=== PATIENT | female | born 1970 | race Caucasian/White ===

== ENCOUNTER 2023-02-19 13:51 | Outpatient (AMB) | payer OTHER, SELFPAY ==
--- NOTE | 2023-02-19 13:59 | AM.OFFWIN_ITS ---
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 Patient Tobacco Use Status: Never used Tobacco Allergies No Known Allergies Allergy (Verified 02/19/23 14:00) Do you need a note to return to daycare/school/sports/work: No HPI HPI Comments History of Present Illness Details 1413 52-year-old female presents with a produ ctive cough of yellow / green sputum for the past 3 weeks, not improving. Patient reports week and half ago her daughter was sick with COVID, she took a COVID test at that time and she was negative. S he reports symptoms seem to be getting worse instead of better. She reports associated fatigue, malaise. In some chest discomfort only with cough, no chest discomfort shortness of breath at rest. She denies fevers, chills, headache, vision changes, dizziness, weakness, nausea, vomiting, abdominal pain. Physical examination benign. This is likely viral illness versus bronchitis versus flu versus COVID. Unlikely pneumonia, pulmonary embolism, ACS. will treat with doxycycline, albuterol and prednisone for bacterial bronchitis as symptoms have been ongoing for 3 weeks. Will give prednisone albuterol. COVID test pending. Educated patient on diagnosis and treatment plan, answered all question, patient verbalizes understanding. At this time patient will be discharged home, advised to return with new or worsening symptoms. Educated on worrisome signs and symptoms and when to return. At this time I feel comfortable discharge home. [facility] Patient Tobacco Use Status: Never used Tobacco Review of Systems Const Details: Constitutional : No Weight loss, No Fever, No Chills, No Fatigue, No Malaise ENT/Mouth : No sore throat, No Rhinorrhea Eyes: No Eye Pain, No Swelling, No Redness Cardiovascular : No Chest Pain, No SOB, No Dyspnea on Exertion, No Orthopnea, No Edema, No Palpitations Respiratory : + Cough, No Sputum, No Wheezing Gastrointestinal : No Nausea, No Vomiting, No Diarrhea, No Constipation, No abdominal Pain, No Hematochezia, No Melena Genitourinary : No Dysuria, No Urinary Frequency, No Hematuria, Musculoskeletal : No joint pain, No Myalgias, No Joint Swelling Skin : No Skin Lesions, No rash Neuro : No Weakness, No Numbness, No Dizziness, No Headache Psych : No Anxiety/Panic, No Depression All other systems reviewed and are negative All systems reviewed & are unremarkable except as noted in HPI and below Physical Exam Vital Signs: Last Vital Signs Temp 97 F 02/19/23 14:00 Pulse 80 02/19/23 14:00 BP 114/60 02/19/23 14:00 Pulse Ox 98 02/19/23 14:00 Oxygen Delivery Method Room Air 02/19/23 14:00 BMI result Body Mass Index 32.9 vss Appearance: Alert.? Oriented X3.? No acute distress.? Head: Normocephalic, atraumatic, no step-offs or deformities Eyes: Pupils equal, round and reactive to light. Neck: Normal inspection.? Neck supple.? CVS: Normal heart rate and rhythm.? Pulses normal.? Respiratory: No respiratory distress.? Breath sounds normal.? Abdomen: Soft and nontender.? Skin: Skin warm and dry.? Normal skin color.? Normal skin turgor.? Extremities: No lower extremity edema.? No calf ttp, negative kaity b/ 5/5 strength to bilateral upper and lower extremities Neuro: Oriented X 3.? No motor deficit.? No sensory deficit. CN 2-12 intact Assessment & Plan Assessment & Plan (1) Bronchitis: Code(s): J40 - Bronchitis, not specified as acute or chronic Plan Take your medications as prescribed. If you were prescribed antibiotics today, it is important that you take your medication to their entirety, do not skip any doses, do not finish them early. Follow-up with your primary care provider this week. Return to the emergency department with new or worsening symptoms. Such as fevers, chills, chest pain, shortness of breath, nausea, vomiting, dizziness, headache, vision changes, lethargy In case of emergency call 911 Orders: Orders BinaxNOW Covid-19 Ag Today J40 - Bronchitis, not specified as acute or chronic Medications: New doxycycline hyclate 100 mg PO BID 14 caps 0RF 7 days prednisone 40 mg (2 x 20 mg) PO DAILY 10 tabs 0RF 5 days albuterol sulfate 90 mcg/actuation 2 puffs inhalation Q6H PRN 6.7 grams 0RF shortness of breath or wheezing Coding Level of Care Code Est Pt Level 3 (19149) Diagnoses Bronchitis J40
[2023-02-19 14:00] VITALS: BP 114/60; PULSE 80; TEMP 36.1; O2SAT 98; BMI 32.9
== END 2023-02-19 14:46 | disposition home or self-care (01) ==
PROVIDERS: Visit Provider Physician Assistant
DX: J40 Bronchitis, not specified as acute or chronic (principal)
CPT/HCPCS: 99213

== ENCOUNTER 2023-02-19 14:11 | Outpatient (REF) | payer OTHER, SELFPAY ==
[2023-02-19 14:37] LABS: Binax Internal Control QC Valid; Binax Now Covid-19 Ag Negative (Negative); Binax Performed by: PAULP
== END 2023-02-19 14:12 | disposition home or self-care (01) ==
LOC: HO.HMGCLDS 14:11
PROVIDERS: Visit Provider Physician Assistant
DX: Z11.52 Encounter for screening for COVID-19 (principal); J40 Bronchitis, not specified as acute or chronic
CPT/HCPCS: 87811; C9803

== ENCOUNTER 2024-12-30 09:15 | Outpatient (REF) | payer OTHER, SELFPAY ==
[2024-12-30 11:06] LABS: INTERNATIONAL NORM RATIO 1.0 (0.9-1.1); Prothrombin Time 11.0 SEC (10.9-12.4)
[2024-12-30 11:38] LABS: Alanine Aminotransferase 30 U/L (0-31); Albumin Level 4.6 g/dL (3.5-5.0); Alkaline Phosphatase 104 U/L (39-117); Aspartate Amino Transferase 27 U/L (5-31); Gamma Glutamyl Transpeptidase 38 U/L (7-33); Total Protein 7.4 g/dL (6.5-8.0)
[2024-12-30 11:44] LABS: Ferritin 187 ng/mL (10-250)
[2024-12-30 12:01] LABS: HBS Num1 1.28 mIU/mL (0-7.99); HBc Num1 0.14 S/CO (0.00-0.79); HBsAGNum1 0.38 S/CO (0.00-0.99); Hepatitis A Antibody IgM 0.20 Index (0-0.79); Hepatitis B Surface Antigen Negative (Negative); ~HepC Num1 0.08 S/CO (0.00-0.79); ~Hepatitis A Antibody IgM Nonreactive (Nonreactive); ~Hepatitis B Surface Antibody NONREACTIVE (Nonreactive); ~Hepatitis C Antibody Nonreactive (Nonreactive)
[2024-12-30 12:05] LABS: Folate > 20.0 ng/mL (> or = 4.0); Vitamin B12 816 pg/mL (200-900)
[2025-01-05 00:23] LABS: FIB-ALT 23 U/L (6-29); FIB-Alpha-2-Macroglobulin 192 mg/dL (106-279); FIB-Apolipoprotein A1 207 mg/dL (101-198); FIB-GGT 30 U/L (3-70); FIB-Haptoglobin 160 mg/dL (43-212); FIB-Total Bilirubin 0.7 mg/dL (0.2-1.2); Liver Fibrosis Score 0.11; Liver Fibrosis Stage F0; Nec Inflam Act Grade A0; Nec Inflam Act Score 0.08
[2025-01-05 14:49] LABS: Vitamin D 25-OH, D2 <4 ng/mL; Vitamin D 25-OH, D3 49 ng/mL; Vitamin D 25-OH, Total 49 ng/mL (30-100)
[2025-01-05 22:38] LABS: Anti Nuclear Antibody Pattern Nuclear, Nucleolar; Anti Nuclear Antibody Screen POSITIVE (NEGATIVE); Anti Nuclear Antibody Titer 1:80 titer
== END 2024-12-30 09:16 | disposition home or self-care (01) ==
LOC: HO.LAB 09:15
PROVIDERS: PCP Student in an Organized Health Care Education/Training Program; Visit Provider Nurse Practitioner Family
DX: R74.01 Elevation of levels of liver transaminase levels (principal); R79.89 Other specified abnormal findings of blood chemistry; R74.8 Abnormal levels of other serum enzymes; R10.9 Unspecified abdominal pain; K59.00 Constipation, unspecified; E55.9 Vitamin D deficiency, unspecified; K76.0 Fatty (change of) liver, not elsewhere classified; R19.7 Diarrhea, unspecified; Z01.84 Encounter for antibody response examination
CPT/HCPCS: 36415; 80076; 81596; 82105; 82306; 82390; 82607; 82728; 82746; 82977; 84443; 85610; 85652; 86015; 86038; 86039; 86364; 86381; 86704; 86706; 86709; 86803; 87340

== ENCOUNTER 2024-12-30 09:15 | Outpatient (AMB) | payer OTHER, SELFPAY ==
--- NOTE | 2024-12-30 09:16 | A.OFFVIS_ITS ---
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 Intake Note: New pt for initial eval of liver disease CC; C.O. R upper back pain, relatively new onset within the last 3-4 mos per pt. Pt states it is idiopathic in nature and denies any additional sx or concerns at this time. US done recently which prompted the referral. 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 Patient was referred to us for evaluation of her liver. Recent ultrasound done by her PCP for elevation of liver enzymes that showed coarse hepatic echogenicity without suspicious lesion. Smooth hepatic contour. PCP notes reviewed and noted that patient had colonoscopy in August of this year. Patient had 1 small polyp in with erosions seen in ileum. Patient was taking NSAIDs. Told to stop. Patient is taking Tylenol as needed for pain. Patient admits that her diet might not be as good. Patient gained some weight over the past f ew years. Patient reports pain in the right upper back. No right upper quadrant discomfort. Denies any nausea or vomiting. Denies any melena, hematochezia. Denies dyspepsia, dysphagia or odynophagia PFSH Medical History (Updated 12/30/24 @ 10:14 by Shanna Royal [facility]) NAFL (nonalcoholic fatty liver) Transaminitis Surgical History (Updated 12/30/24 @ 09:30 by DUANE Ramírez) History of colonoscopy delivery delivered History of carpal tunnel release Family History (Updated 12/30/24 @ 09:29 by DUANE Ramírez) Father Colon cancer Social History Patient Tobacco Use Status: Never used Tobacco Review of Systems Const Denies weight gain and Denies weight loss ENT Reports no additional complaints, Denies dysphagia and Denies odynophagia Card Reports no additional complaints Resp Reports no additional complaints GI Denies abdominal pain, Denies belching, Denies melena, Denies bloating, Denies change in bowel habits, Denies dysphagia, Denies excessive flatus, Denies dyspepsia, Denies heartburn, Denies diarrhea, Denies loose stools, Denies nausea, Denies odynophagia and Denies vomiting Musc Reports no additional complaints Neuro Reports no additional complaints Psych Reports no additional complaints Endo Reports no additional complaints Physical Exam Vital Signs: Last Vital Signs Pulse 92 12/30/24 09:17 BP 122/68 12/30/24 09:17 Pulse Ox 96 12/30/24 09:17 Oxygen Delivery Method Room Air 12/30/24 09:17 BMI result Body Mass Index 32.9 Const General: healthy appearing, no acute distress and well developed Nutritional Appearance: well nourished and obese Orientation/consciousness: patient oriented x3 Resp Effort & Inspection: normal respiratory effort, able to speak in complete sentences, no tracheal deviation and symmetric chest movement Auscultation: clear to auscultation bilaterally Cardio Rate: regular rate GI Inspection: Yes normal to inspection, No distended and Yes obesity Palpation (GI): Soft to palpation, not firm, nontender and No hepatosplenomegaly present Auscultation: normal bowel sounds General: Yes no CVA tenderness Back/Spine/Pelvis Back: no CVA tenderness Skin General skin exam: elasticity normal, turgor normal and dry skin Neuro General: patient oriented x3 Psych Appearance: grossly normal Mental Status: mental status grossly normal Assessment & Plan Assessment & Plan (1) Transaminitis: Code(s): R74.01 - Elevation of levels of liver transaminase levels Category: Medical (2) NAFL (nonalcoholic fatty liver): Code(s): K76.0 - Fatty (change of) liver, not elsewhere classified Category: Medical Plan Reviewed results from her recent ultrasound. Increased hepatic echogenicity, most likely NAFLD, however we will rule out any autoimmune disorders like hemochromatosis, autoimmune hepatitis, PBC. Will check for inflammatory disorders. Will order ultrasound with elastography. Check liver fibrosis panel. Discussed with patient dietary choices as well as well as limited drinking. Patient drinks occasionally on the weekends for. List food and dietary changes discussed and recommendations given to patient. Discussed with patient also about trying to lose weight and exercise. Diet that includes low fat, low salt, low carb and high-protein diet. Patient reports constipation. Patient reports that she has been constipated for a long time. She can start taking senna as needed. Increase fluid intake and activity to promote better bowel motility. Patient will follow-up with us in 6 months. We will call patient with all the results sooner. Patient is agreeable to plan of care and verbalizes understanding of instructions. She was given the opportunity to ask questions and all questions answered. Thank you for allowing me to participate in her care Orders: Orders Transglutaminase IgA Today R10.9 - Unspecified abdominal pain Hepatitis A,B,C Profile Today R79.89 - Other specified abnormal findings of blood chemistry Smooth Muscle Antibody Today R79.89 - Other specified abnormal findings of blood chemistry Ceruloplasmin Today R79.89 - Other specified abnormal findings of blood chemistry TSH reflex Free T4 Today K59.00 - Constipation, unspecified Erythrocyte Sedimentation Rate Today R79.89 - Other specified abnormal findings of blood chemistry Ferritin Today R74.8 - Abnormal levels of other serum enzymes JENNY Reflex Titer and Pattern Today R74.8 - Abnormal levels of other serum enzymes Vitamin D 25-OH (D2 and D3) Today E55.9 - Vitamin D deficiency, unspecified Liver Fibrosis Pnl Today K76.0 - Fatty (change of) liver, not elsewhere classified Liver Panel Today R74.01 - Elevation of levels of liver transaminase levels Alpha Fetoprotein Today R79.89 - Other specified abnormal findings of blood chemistry Vitamin B12 and Folate Today R19.7 - Diarrhea, unspecified Prothrombin Time INR Today R74.8 - Abnormal levels of other serum enzymes Gamma Glutamyl Transpeptidase Today R74.8 - Abnormal levels of other serum enzymes Mitochondrial Antibody Today R79.89 - Other specified abnormal findings of blood chemistry US abdomen comp w elastography Today R79.89 - Other specified abnormal findings of blood chemistry Medications: New sennosides (Natural Senna Laxative) 17.2 mg (2 x 8.6 mg) PO BEDTIME 60 tabs 3RF constipation K59.00 - Constipation, unspecified Coding Level of Care Code New Pt Level 4 (67165) Diagnoses Transaminitis R74.01 NAFL (nonalcoholic fatty liver) K76.0 Time Spent (min) 50 Comment 35 minutes spent with patient and additional 15 minutes spent reviewing her records
[2024-12-30 09:17] VITALS: BP 122/68; PULSE 92; O2SAT 96; BMI 32.9
== END 2024-12-30 10:02 | disposition home or self-care (01) ==
LOC: HO.HGI 09:16
PROVIDERS: Visit Provider Nurse Practitioner Family
DX: R74.01 Elevation of levels of liver transaminase levels (principal); K76.0 Fatty (change of) liver, not elsewhere classified
CPT/HCPCS: 99204

== ENCOUNTER 2025-02-03 09:56 | Outpatient (REF) | payer OTHER, SELFPAY ==
--- NOTE | ~2025-02-03 | US_ITS ---
EXAMINATION: US COMPLETE ABDOMEN WITH LIVER ELASTOGRAPHY CLINICAL INFORMATION: Abnormal LFTs. COMPARISON: None available. TECHNIQUE: Real-time imaging of the abdominal viscera. Noninvasive ultrasound liver fibrosis assessment is performed using Maureen ElastPQ point quantification shear wave elastography (pSWE) with a C5-2 MHz transducer. Multiple elastography samples are obtained. FINDINGS: PANCREAS: The visualized pancreatic head and body are normal in appearance. The remainder of the pancreas is obscured from visualization by the overlying bowel gas. ABDOMINAL AORTA: No aortic aneurysm is seen. INFERIOR VENA CAVA: Visualized portions are normal. LIVER: The liver demonstrates normal size, contour and echogenicity. Right hepatic lobe measures 16.0 cm in length and left hepatic lobe measures 7.3 cm in length. No focal lesion or intrahepatic biliary duct dilatation. Portal flow is hepatopedal Shear wave liver elastography median stiffness is 1.42 m/s (reference: normal median stiffness is 1.3 m/s or less). IQR/median stiffness to assess sampling precision is 0.08 (reference: good quality data set is IQR/median stiffness of 0.15 or less). GALLBLADDER: The gallbladder is physiologically distended without evidence of stones, sludge, polyps, wall thickening or pericholecystic fluid. Gallbladder is best visualized into intercostally. COMMON BILE DUCT: Normal in caliber measuring 0.3 cm in diameter. RIGHT KIDNEY: No hydronephrosis. No renal calculi or focal parenchymal lesions. The kidney measures 10.3 cm in maximum dimension. There are calcified vessel caro throughout. LEFT KIDNEY: No hydronephrosis. No renal calculi or focal parenchymal lesions. The kidney measures 11.8 cm in maximum dimension. There are calcified vessel caro throughout. SPLEEN: Unremarkable. The spleen measures 8.9 cm in maximum dimension. FREE FLUID: None seen. US/US abdomen comp w elastography IMPRESSION: 1. Unremarkable ultrasound abdomen 2. Liver elastography: Median liver stiffness 1.42 suggestive of cACLD ruled out. REFERENCE: Society of Radiologists in Ultrasound Liver Stiffness Thresholds (2020): LIVER STIFFNESS THRESHOLDS: *Liver Stiffness equal or less than 1.3 m/s: High probability of being normal. *Liver Stiffness less than 1.7 m/s: In the absence of other known clinical signs, rules out compensated advanced chronic liver disease. *Liver Stiffness 1.7-2.1 m/s: Suggestive of compensated advanced chronic liver disease but need further test for confirmation. *Liver Stiffness over 2.1 m/s: Rules in compensated advanced chronic liver disease. *Liver Stiffness over 2.4 m/s: Suggestive of clinically significant portal hypertension. QUALITY OF DATA SET: *IQR/Median value equal or less than 0.15 implies a quality data set. *IQR/Median value over 0.15 implies a poor quality data set. SIGNIFICANT CHANGE FROM PRIOR EXAM: Significant change if liver stiffness measurement is 10% or greater from prior exam. OTHER CONSIDERATIONS: The stage of liver fibrosis may be overestimated in the setting of acute hepatitis, liver inflammation, elevated liver function tests, hepatic vascular congestion, obstructive cholestasis, non-fasting state, and infiltrative diseases such as amyloidosis and lymphoma. In some patients with NAFLD, the liver stiffness thresholds for compensated advanced chronic liver disease may be lower. In causes other than viral hepatitis and NAFLD, liver stiffness thresholds are not well established. Electronically signed by: Zac Ji MD 02/03/2025 10:58 AM LOW
== END 2025-02-03 09:57 | disposition home or self-care (01) ==
LOC: HO.US 09:56
PROVIDERS: PCP Student in an Organized Health Care Education/Training Program; Visit Provider Nurse Practitioner Family
DX: R79.89 Other specified abnormal findings of blood chemistry (principal)
CPT/HCPCS: 76700; 76981

== ENCOUNTER → 2025-02-03 09:59 | Outpatient (BNV) | payer OTHER, SELFPAY | PROVIDERS: PCP Student in an Organized Health Care Education/Training Program; Visit Provider Radiology Diagnostic Radiology | DX: R79.89 Other specified abnormal findings of blood chemistry (principal) | CPT/HCPCS: 76700 ==